=== PATIENT | male | born 1955 | race African-American/Black ===

== ENCOUNTER 2020-10-22 17:52 | Emergency (ER) | payer OTHER ==
[2020-10-22 18:46] LABS: PTT 29.5 sec (22.9-36.1); Prothrombin Time 12.9 sec (12.0-14.7)
--- NOTE | 2020-10-22 18:48 | CT ---
Head CT without contrast 10/22/2020: Comparison: None HISTORY: Injury, trauma, pain TECHNIQUE: Axial CT imaging at 2.5 mm intervals from vertex through skull base without contrast. Radha nal and sagittal reformatted imaging obtained. FINDINGS: The visualized paranasal sinuses and mastoid air cells demonstrate no acute findings. There is atherosclerotic calcification of the cavernous carotid arteries. There is no displaced lui rial fracture, intracranial hemorrhage, midline shift, or mass effect. There is cerebral volume loss with periventricular, deep, and subcortical white matter hypodensity, consistent with small vess el disease. IMPRESSION: Small vessel disease. No intracranial hemorrhage or displaced calvarial fracture.
[2020-10-22 18:52] LABS: #Lymphocytes 0.8 thou/uL (1.20-3.40); #Monocytes 0.5 thou/uL (0.11-0.59); #Neutrophils 2.7 thou/uL (1.40-6.50); %Basophils 0.6 % (0.0-1.0); %Lymphocytes 18.6 % (21.0-51.0); %Monocytes 12.1 % (0.0-10.0); %Neutrophils 67.7 % (42.0-75.0); Hemoglobin 13.4 g/dL (14.0-18.0); Mean Corpuscular HGB CONC 33.4 g/dL (32.0-36.0); Mean Corpuscular Hemoglobin 33.3 pg (27.0-31.0); Mean Corpuscular Volume 99.7 fL (78.0-98.0); Mean Platelet Volume 7.4 fL (7.4-10.4); Platelet Count 105 thou/uL (130-400); RBC Distribution Width 11.4 % (11.5-14.5); Red Blood Cell (RBC) Count 4.04 mill/uL (4.70-6.10)
--- NOTE | 2020-10-22 18:57 | CT ---
CT of the cervical spine without contrast: 10/22/2020 COMPARISON: None HISTORY: Fall, head laceration, trauma TECHNIQUE: Axial CT imaging is obtained at 1.25 mm intervals through the cervical spine with coronal and sagittal reformatted imaging FINDINGS: There is debris within the incompletely imaged trachea. There are prominent upper lobe emph ysematous changes. The occipital condyles, the dens, the C1-2 articulation, the atlantoaxial interspace, the craniocervi gaurav junction, and the cervicothoracic junction demonstrate no acute findings. No significant anterolisthesis or retrolisthesis. No prevertebral soft tissue swelling. There is bilateral uncoverte bral osteophyte formation at C5-6. There is degenerative change at the atlantoaxial interspace. There is multilevel upper cervical spine facet hypertrophy on the right. IMPRESSION: Cervical spine degenerative change as above. No acute fracture or evidence of dislocation is seen.
[2020-10-22 19:04] LABS: Platelet Morphology Comment Appears Decreased; RBC Morphology Normal
[2020-10-22 19:06] LABS: ALT (SGPT) 38 U/L (8-55); AST (SGOT) 61 U/L (5-34); Albumin 3.5 g/dL (3.4-4.8); Alcohol Less than 10 mg/dL (Less than 10); Alkaline Phosphatase 63 U/L (40-110); Anion Gap 16 mmol/L (10-20); BUN (Urea Nitrogen) 11 mg/dL (8.4-25.7); Bilirubin, Total 0.6 mg/dL (0.2-1.2); Calc. Creatinine Clearance 0 mL/min (70-130); Calcium 9.5 mg/dL (7.8-10.44); Carbon Dioxide 24 mmol/L (23-31); Chloride 96 mmol/L (98-107); Globulin 3.5 g/dL (2.4-3.5); Glucose 90 mg/dL (80-115); Lipase 164 U/L (8-78); Potassium 3.5 mmol/L (3.5-5.1); Sodium 132 mmol/L (136-145)
[2020-10-22 21:32] LABS: Lactic Acid 0.9 mmol/L (0.5-2.2)
[2020-10-22 22:06] LABS: Bacteria/HPF 4+ HPF (None Seen); Bilirubin Negative (Negative); Blood, Urine Trace (Negative); Clarity Turbid (Clear); Glucose, Urine (Dipstick) Normal (Negative); Ketone, Urine Negative (Negative); Leukocyte 250 Leu/uL (Negative); Nitrite Negative (Negative); Protein, Urine (Dipstick) Negative (Neg-Trace); RBC/HPF 0-3 HPF (0-3); Specific Gravity, Urine 1.005 (1.002-1.036); Squamous Epithelial None Seen HPF (0-3); Urobilinogen Normal mg/dL (Less than 2)
--- NOTE | 2020-10-22 22:34 | RAD ---
Portable frontal chest radiograph: 10/22/2020 COMPARISON: 06/29/2019 HISTORY: Fall FINDINGS: Mild increased linear interstitial density noted bilaterally, stable. No pneumothorax, pleu ral fluid, lobar consolidation, or alveolar edema. Heart and mediastinal contours are stable. There is atherosclerotic calcification of the aortic arch. IMPRESSION: Stable appearance of the chest. No acute findings.
[2020-10-22] MEDS ORDERED: Cephalexin 250 MG CAP ONE (23:02)
[2020-10-23 06:27] LABS: SARS-CoV-2 PCR by NAA Not Detected (NotDetected)
== END 2020-10-22 23:09 | disposition home or self-care (01) ==
LOC: EDBD 17:52 → ERS 17:52
DX: S01.81XA Laceration without foreign body of other part of head, initial encounter (principal); N39.0 Urinary tract infection, site not specified; W07.XXXA Fall from chair, initial encounter; Z79.899 Other long term (current) drug therapy; I10 Essential (primary) hypertension; K21.9 Gastro-esophageal reflux disease without esophagitis; J44.9 Chronic obstructive pulmonary disease, unspecified; F17.210 Nicotine dependence, cigarettes, uncomplicated
CPT/HCPCS: 36415; 70450; 71045; 72125; 80053; 80307; 81003; 81015; 83605; 83690; 85025; 85610; 85730; 87635; 93005; U0003; U0005